=== PATIENT | male | born 1950 | race Caucasian/White ===

== ENCOUNTER 2016-08-11 09:40 | Observation (INO) | payer OTHER ==
[~2016-08-11] VITALS: Ht 185.4 cm; Wt 93.7 kg
[~2016-08-11 09:40] MED LIST: ATORVASTATIN CA80 MG PO; HYTRIN5 MG PO; ISOSORBIDE MONO30 MG PO; JANUMET 50/11 TABLET PO; LISINOPRIL-HCT1 EAC3 PO; LO-DOSE ASPIRIN81 M1 PO; LOPRESSOR25 MG PO; METFORMIN HCL1000 MG PO; METOPROLOL SUCC50 MG PO; NITROSTAT0.4 MG SL; OXYCODONE HCL10 MG PO; PANTOPRAZOLE SO40 MG PO; PRAVASTATIN SOD40 MG PO; TENORMIN50 MG PO; TERAZOSIN HCL2 MG PO
[2016-08-11 10:23] LABS: MCH 31.4 PG (29.0-34.0); MCHC 34.4 G/DL (30.0-36.0); MCV 91.1 FL (86-99); MEAN PLAT.VOLUME 9.2 uM^3 (9.0-12.4); PLATELET COUNT 140 K/uL (156-360); RBC DIS.WIDTH-CV 13.5 % (11.8-14.6); RBC DIS.WIDTH-SD 45.2 % (39-53); RED BLOOD COUNT 4.72 M/uL (4.00-5.50); WHITE BLOOD COUNT 12.1 K/uL (4.1-10.2)
[2016-08-11 10:31] LABS: CHLORIDE 107 mEq/L (99-109); POTASSIUM 3.8 mEq/L (3.7-5.4); SODIUM 140 mEq/L (136-147)
[2016-08-11 10:33] LABS: GLUCOSE 95 mg/dL (70-99)
[2016-08-11 10:34] LABS: ANION GAP 9 MEQ/L (2-14)
[2016-08-11 10:37] LABS: GFR ESTIMATE (CALCULATED) > 59 mL/min/
[2016-08-11 10:38] LABS: UREA NITROGEN (BUN) 12 mg/dL (9-23)
[2016-08-11 10:44] LABS: TROP-I INTERPRETATION NEGATIVE; TROPONIN-I < 0.01 ng/mL (0.0-0.30)
[2016-08-11] MEDS ORDERED: ZESTRIL20 MG PO (11:54)
[2016-08-11] MEDS ORDERED: METFORMIN HCL1000 M3 PO (11:57)
[2016-08-11 13:35] LABS: D-DIMER ELISA 0.23 mg/L FEU (< 0.57)
[2016-08-11 14:19] LABS: POINT-OF-CARE METER ID UU14100415
[2016-08-11 16:09] VITALS: BP 156/75
[2016-08-11 18:33] LABS: TROP-I INTERPRETATION NEGATIVE; TROPONIN-I < 0.01 ng/mL (0.0-0.30)
[2016-08-11 19:30] VITALS: BP 153/75
[2016-08-11 21:51] LABS: POINT-OF-CARE METER ID UU13113831
[2016-08-12 00:08] VITALS: BP 116/59
[2016-08-12 00:54] LABS: TROP-I INTERPRETATION NEGATIVE; TROPONIN-I < 0.01 ng/mL (0.0-0.30)
[2016-08-12 03:11] VITALS: BP 182/72
[2016-08-12 04:45] VITALS: BP 149/84
[2016-08-12 07:13] LABS: HEMATOCRIT 37.5 % (38.0-50.0); MCH 31.1 PG (29.0-34.0); MCHC 34.1 G/DL (30.0-36.0); MEAN PLAT.VOLUME 9.5 uM^3 (9.0-12.4); PLATELET COUNT 102 K/uL (156-360); RBC DIS.WIDTH-CV 13.6 % (11.8-14.6); RBC DIS.WIDTH-SD 45.6 % (39-53); RED BLOOD COUNT 4.12 M/uL (4.00-5.50)
[2016-08-12 07:25] LABS: ALKALINE PHOSPHATASE 67 IU/L (3-129); ANION GAP 7 MEQ/L (2-14); CHLORIDE 107 MEQ/L (99-109); GFR ESTIMATE (CALCULATED) > 59 mL/min/; GLUCOSE 117 mg/dL (70-99); POTASSIUM 3.7 MEQ/L (3.7-5.4); SAMPLE HEMOLYSIS CHECK 0; SAMPLE ICTERIC CHECK 0; SAMPLE LIPEMIA CHECK 0; SODIUM 138 MEQ/L (136-147); TOTAL BILIRUBIN 1.9 MG/DL (0.0-1.0); UREA NITROGEN (BUN) 14 mg/dL (9-23)
[2016-08-12 07:33] LABS: WHITE BLOOD COUNT 8.1 K/uL (4.1-10.2)
[2016-08-12 07:38] VITALS: BP 136/64
== END 2016-08-12 12:13 | disposition home or self-care (01) ==
LOC: EME 09:40 → 5WEST 12:47 → EDOF 12:47 → 5WEST 15:58
PROVIDERS: Hospitalist; Internal Medicine
DX: R07.89 Other chest pain (principal); I25.10 Atherosclerotic heart disease of native coronary artery without angina pectoris; Z95.1 Presence of aortocoronary bypass graft; I10 Essential (primary) hypertension; E11.9 Type 2 diabetes mellitus without complications; E78.00 Pure hypercholesterolemia, unspecified; K21.9 Gastro-esophageal reflux disease without esophagitis; K59.00 Constipation, unspecified; N40.0 Benign prostatic hyperplasia without lower urinary tract symptoms; D69.6 Thrombocytopenia, unspecified; E78.5 Hyperlipidemia, unspecified
CPT/HCPCS: 71020; 71260; 80048; 80053; 82948; 84484; 85027; 85379; 93005; 99281; 99285; G0378; J1200; J1650; J1885; J2270; J7030